=== PATIENT | female | born 1985 | race Caucasian/White ===

== ENCOUNTER → 2018-04-27 | Outpatient (CLI) | payer OTHER ==
--- NOTE | 2018-04-27 09:17 | US ---
EXAMINATION TYPE: Transabdominal DATE OF EXAM: 06/28/17 COMPARISON: NONE CLINICAL HISTORY: Z36 Confirm Dates Viability. Confirm Dates EXAM PERFORMED: Transabdominal (TA) EXAM MEASUREMENTS: GESTATIONAL AGE / DATING Physician Established: (9 weeks/0 days) EDC: 11/30/2018 Dates by LMP: (9 weeks/0 days) EDC: 11/30/2018 Dates by First Scan: No prior Dates by Current Scan for: (9 weeks/0 days) EDC: 11/30/2018 MATERNAL ANATOMY Uterus: 10.2 x 5.5 x 5.7 cm Right Ovary: 3.3 x 2.6 x 2.4 cm Left Ovary: 3.2 x 2.1 x 2.0 cm Post CDS / Adnexa: wnl Presence of free fluid: No Presence of corpus luteal cyst: Right Ovary= 2.5 x 1.7 x 1.6 cm Presence of subchorionic bleed: No GESTATION / SURVEY CRL: 2.3 cm (9 weeks/0 days) MSD: wnl Heart Rate: 172 bpm Rhythm: Normal IUP: Viable IUP Single, viable IUP/ No abnormality seen at this time IMPRESSION: 1. Single intrauterine gestation estimated at 9 weeks 0 days gestation based on crown-rump length. Ca rdiac activity measures 172 bpm was observed during the study. 2. Right ovarian cyst.
== END ==
LOC: RADUSWWP 08:49
PROVIDERS: ATTEND Obstetrics & Gynecology
DX: O34.81 Maternal care for other abnormalities of pelvic organs, first trimester (principal); N83.201 Unspecified ovarian cyst, right side; Z3A.09 9 weeks gestation of pregnancy
CPT/HCPCS: 76801

== ENCOUNTER 2018-07-08 09:01 | Emergency (ER) | payer OTHER ==
--- NOTE | 2018-07-08 09:33 | ED ---
General Adult HPI - General Chief complaint: Shortness of Breath Stated complaint: Congestion/cold Time Seen by Provider: 07/08/18 09:05 Source: family, RN notes reviewed Mode of arrival: ambulatory Limitations: no limitations - History of Present Illness Initial comments: This is a 33-year-old female presents emergency department complaining that she has had upper respiratory congestion cough and some mild shortness of breath for 6 weeks. Patient states she hasn't had a fever but she is coughing quite a bit. Patient states she went to [facility] this morning and they sent her into the emergency department because her heart rate was so fast. Patient states she has not had any chest pain her noticed any palpitations but she continues to have a cough without much production and she continues to be mildly short of breath. Patient denies any fever chills. Patient denies any abdominal pain patient denies nausea vomiting diarrhea. Patient denies headache patient denies numbness weakness. Patient denies any calf pain or leg swelling. - Related Data Home Medications Medication Instructions Recorded Confirmed Pedi Multivit No.25/Folic Acid 300 mcg PO DAILY 07/08/18 07/08/18 [Flintstones Multivit Chew Tab] diphenhydrAMINE HCL [Benadryl] 25 mg PO Q8H 07/08/18 07/08/18 Allergies Allergy/AdvReac Type Severity Reaction Status Date / Time No Known Allergies Allergy Verified 07/08/18 09:13 Review of Systems ROS Statement: Those systems with pertinent positive or pertinent negative responses have been documented in the HPI. ROS Other: All systems not noted in ROS Statement are negative. Past Medical History Additional Past Medical History / Comment(s): Migraines x 6 months History of Any Multi-Drug Resistant Organisms: None Reported Past Surgical History: Adenoidectomy, Cholecystectomy, Tonsillectomy Additional Past Surgical History / Comment(s): tubes in ears Past Psychological History: No Psychological Hx Reported Smoking Status: Never smoker General Exam - General Exam Comments Initial Comments: GENERAL: Patient is well-developed and well-nourished. Patient is nontoxic and well- hydrated and is in mild distress. ENT: Neck is soft and supple. No significant lymphadenopathy is noted. Oropharynx is clear. Moist mucous membranes. Neck has full range of motion without eliciting any pain. EYES: The sclera were anicteric and conjunctiva were pink and moist. Extraocular movements were intact and pupils were equal round and reactive to light. Eyelids were unremarkable. PULMONARY: Unlabored respirations. Good breath sounds bilaterally. No audible rales rhonchi or wheezing was noted. CARDIOVASCULAR: Patient's heart rates about 110 beats a minute ABDOMEN: Soft and nontender with normal bowel sounds. SKIN: Skin is clear with no lesions or rashes and otherwise unremarkable. NEUROLOGIC: Patient is alert and oriented x3. Cranial nerves II through XII are grossly intact. Motor and sensory are also intact. Normal speech, volume and content. Symmetrical smile. MUSCULOSKELETAL: Normal extremities with adequate strength and full range of motion. No lower extremity swelling or edema. No calf tenderness. LYMPHATICS: No significant lymphadenopathy is noted PSYCHIATRIC: Normal psychiatric evaluation. Normal interpersonal interactions appears functionally intact in deals appropriately with others. No signs of depression. No signs of anxiety. Limitations: no limitations Course Vital Signs 07/08/18 07/08/18 09:03 09:44 Temperature 98.1 F 98.9 F Pulse Rate 121 H 106 H Respiratory 22 24 Rate Blood Pressure 143/95 128/83 O2 Sat by Pulse 94 L 97 Oximetry Medical Decision Making - Medical Decision Making After initially interviewed the patient I went back in to talk to her again she indicated to me that she was 19 weeks . EKG shows sinus tachycardia at 111 bpm MD interval 252 QRS is 72 QT interval 3:30 QTC is 459. Patient's EKG shows no ST segment elevation or depression or T wave abnormalities are noted. Chest x-ray shows no acute abnormality. Patient will not get Tamiflu because it's been more than 3 days and she also is . - Lab Data Result diagrams: 07/08/18 09:35 07/08/18 09:35 Lab Results 07/08/18 07/08/18 07/08/18 Range/Units 09:35 09:35 09:35 WBC 10.1 (3.8-10.6) k/uL RBC 4.48 (3.80-5.40) m/uL Hgb 12.8 (11.4-16.0) gm/dL Hct 39.3 (34.0-46.0) % MCV 87.8 (80.0-100.0) fL MCH 28.7 (25.0-35.0) pg MCHC 32.7 (31.0-37.0) g/dL RDW 13.0 (11.5-15.5) % Plt Count 155 (150-450) k/uL Neutrophils % 82 % Lymphocytes % 8 % Monocytes % 6 % Eosinophils % 2 % Basophils % 1 % Neutrophils # 8.3 H (1.3-7.7) k/uL Lymphocytes # 0.8 L (1.0-4.8) k/uL Monocytes # 0.6 (0-1.0) k/uL Eosinophils # 0.2 (0-0.7) k/uL Basophils # 0.1 (0-0.2) k/uL PT 9.4 (9.0-12.0) sec INR 0.9 (<1.2) APTT 22.6 (22.0-30.0) sec D-Dimer 0.32 (<0.60) mg/L FEU Sodium 136 L (137-145) mmol/L Potassium 3.8 (3.5-5.1) mmol/L Chloride 106 (98-107) mmol/L Carbon Dioxide 20 L (22-30) mmol/L Anion Gap 10 mmol/L BUN 5 L (7-17) mg/dL Creatinine 0.44 L (0.52-1.04) mg/dL Est GFR (CKD-EPI)AfAm >90 (>60 ml/min/1.73 sqM) Est GFR (CKD-EPI)NonAf >90 (>60 ml/min/1.73 sqM) Glucose 95 (74-99) mg/dL Calcium 9.1 (8.4-10.2) mg/dL Magnesium 1.8 (1.6-2.3) mg/dL Total Bilirubin 0.4 (0.2-1.3) mg/dL AST 16 (14-36) U/L ALT 28 (9-52) U/L Alkaline Phosphatase 52 (38-126) U/L Troponin I (0.000-0.034) ng/mL Total Protein 6.3 (6.3-8.2) g/dL Albumin 3.5 (3.5-5.0) g/dL Influenza Type A RNA (Not Detectd) Influenza Type B (PCR) (Not Detectd) 07/08/18 07/08/18 Range/Units 09:35 10:00 WBC (3.8-10.6) k/uL RBC (3.80-5.40) m/uL Hgb (11.4-16.0) gm/dL Hct (34.0-46.0) % MCV (80.0-100.0) fL MCH (25.0-35.0) pg MCHC (31.0-37.0) g/dL RDW (11.5-15.5) % Plt Count (150-450) k/uL Neutrophils % % Lymphocytes % % Monocytes % % Eosinophils % % Basophils % % Neutrophils # (1.3-7.7) k/uL Lymphocytes # (1.0-4.8) k/uL Monocytes # (0-1.0) k/uL Eosinophils # (0-0.7) k/uL Basophils # (0-0.2) k/uL PT (9.0-12.0) sec INR (<1.2) APTT (22.0-30.0) sec D-Dimer (<0.60) mg/L FEU Sodium (137-145) mmol/L Potassium (3.5-5.1) mmol/L Chloride (98-107) mmol/L Carbon Dioxide (22-30) mmol/L Anion Gap mmol/L BUN (7-17) mg/dL Creatinine (0.52-1.04) mg/dL Est GFR (CKD-EPI)AfAm (>60 ml/min/1.73 sqM) Est GFR (CKD-EPI)NonAf (>60 ml/min/1.73 sqM) Glucose (74-99) mg/dL Calcium (8.4-10.2) mg/dL Magnesium (1.6-2.3) mg/dL Total Bilirubin (0.2-1.3) mg/dL AST (14-36) U/L ALT (9-52) U/L Alkaline Phosphatase (38-126) U/L Troponin I <0.012 (0.000-0.034) ng/mL Total Protein (6.3-8.2) g/dL Albumin (3.5-5.0) g/dL Influenza Type A RNA Detected H (Not Detectd) Influenza Type B (PCR) Not Detected (Not Detectd) Disposition Clinical Impression: Influenza A Disposition: HOME SELF-CARE Instructions (If sedation given, give patient instructions): Influenza (ED) Is patient prescribed a controlled substance at d/c from ED?: No Referrals: Annalise Francisco MD [Primary Care Provider] - 1-2 days Time of Disposition: 11:39
[2018-07-08 10:01] LABS: Basophils # (A) 0.1 k/uL (0-0.2); Basophils % (A) 1 %; Eosinophils # (A) 0.2 k/uL (0-0.7); Eosinophils % (A) 2 %; HCT 39.3 % (34.0-46.0); HGB 12.8 gm/dL (11.4-16.0); Lymphocytes # (A) 0.8 k/uL (1.0-4.8); Lymphocytes % (A) 8 %; MCH 28.7 pg (25.0-35.0); MCHC 32.7 g/dL (31.0-37.0); MCV 87.8 fL (80.0-100.0); Mean Platelet Volume 9.1; Monocytes # (A) 0.6 k/uL (0-1.0); Monocytes % (A) 6 %; Neutrophils # (A) 8.3 k/uL (1.3-7.7); Neutrophils % (A) 82 %; Platelet Count 155 k/uL (150-450); RBC 4.48 m/uL (3.80-5.40); WBC 10.1 k/uL (3.8-10.6)
[2018-07-08 10:11] LABS: ALT 28 U/L (9-52); AST 16 U/L (14-36); Albumin 3.5 g/dL (3.5-5.0); Alkaline Phosphatase 52 U/L (38-126); Anion Gap 10 mmol/L; Blood Urea Nitrogen 5 mg/dL (7-17); Calcium 9.1 mg/dL (8.4-10.2); Carbon Dioxide 20 mmol/L (22-30); Chloride 106 mmol/L (98-107); Glucose 95 mg/dL (74-99); Magnesium 1.8 mg/dL (1.6-2.3); Potassium 3.8 mmol/L (3.5-5.1); Sodium 136 mmol/L (137-145); Total Bilirubin 0.4 mg/dL (0.2-1.3); Total Protein 6.3 g/dL (6.3-8.2)
[2018-07-08 10:27] LABS: D-Dimer 0.32 mg/L FEU (<0.60); INR 0.9 (<1.2); Partial Thromboplastin Time 22.6 sec (22.0-30.0); Prothrombin Time 9.4 sec (9.0-12.0)
--- NOTE | 2018-07-08 11:07 | XR ---
EXAMINATION TYPE: XR chest 2V DATE OF EXAM ORDERED: 07/08/2018 HISTORY: difficulty breathing. REFERENCE: None. FINDINGS: The lungs are clear. Pleural spaces are clear. Heart size is normal. IMPRESSION: NORMAL CHEST.
[2018-07-08 11:58] VITALS: BP 137/78; PULSE 100; RESP 18; TEMP 98.2
== END 2018-07-08 11:57 | disposition home or self-care (01) ==
LOC: EC 09:01
DX: J10.1 Influenza due to other identified influenza virus with other respiratory manifestations (principal); O99.512 Diseases of the respiratory system complicating pregnancy, second trimester; O99.89 Other specified diseases and conditions complicating pregnancy, childbirth and the puerperium; R00.0 Tachycardia, unspecified; Z79.899 Other long term (current) drug therapy; Z90.89 Acquired absence of other organs; Z3A.19 19 weeks gestation of pregnancy
CPT/HCPCS: 36415; 71046; 80053; 83735; 84484; 85025; 85379; 85610; 85730; 87040; 87502; 93005; 99285

== ENCOUNTER 2018-11-07 07:45 | Inpatient (IN) | payer OTHER ==
[2018-11-07 09:19] VITALS: BMI 38.3
[2018-11-07] MEDS ORDERED: CARBOPROST TROMETHAMINE 250 MCG/ML 1 ML AMP IM PRN (09:19)
[2018-11-07] MEDS ORDERED: METHYLERGONOVINE 0.2 MG/ML 1 ML AMP IM PRN (09:19)
[2018-11-07] MEDS ORDERED: LIDOCAINE 0.5% (PF) 5 MG/ML (50 ML SDV) SQ PRN (09:19)
[2018-11-07] MEDS ORDERED: OXYTOCIN 10 UNIT/ML 1 ML VIAL IM PRN (09:19)
[2018-11-07] MEDS ORDERED: TERBUTALINE 1 MG/ML VIAL SQ PRN (09:19)
[2018-11-07 09:48] LABS: Basophils # (A) 0.1 k/uL (0-0.2); Basophils % (A) 0 %; Eosinophils # (A) 0.1 k/uL (0-0.7); Eosinophils % (A) 1 %; HCT 40.6 % (34.0-46.0); HGB 13.4 gm/dL (11.4-16.0); Lymphocytes # (A) 1.4 k/uL (1.0-4.8); Lymphocytes % (A) 10 %; MCH 29.3 pg (25.0-35.0); MCHC 32.9 g/dL (31.0-37.0); MCV 89.1 fL (80.0-100.0); Mean Platelet Volume 10.1; Monocytes # (A) 0.6 k/uL (0-1.0); Monocytes % (A) 5 %; Neutrophils # (A) 11.4 k/uL (1.3-7.7); Neutrophils % (A) 83 %; Platelet Count 193 k/uL (150-450); RBC 4.56 m/uL (3.80-5.40); RDW 13.7 % (11.5-15.5); WBC 13.8 k/uL (3.8-10.6)
[2018-11-07] MEDS: LACTATED RINGERS 1,000 ML IV SCH (09:53)
[2018-11-07] MEDS: OXYTOCIN 30 UNITS/500 ML NS 30 UNIT in SALINE 1 500ML.BAG IV SCH (09:54)
[2018-11-07 09:55] LABS: ALT 32 U/L (9-52); AST 27 U/L (14-36)
[2018-11-07] MEDS ORDERED: BUTORPHANOL 1 MG/ML 1 ML VIAL IV PRN (16:52)
[2018-11-07] MEDS ORDERED: BENZOCAINE/MENTHOL SPRAY 1 GM/SPRAY AEROSOL TOPICAL PRN (19:19)
[2018-11-07] MEDS ORDERED: WITCH HAZEL 1 EACH MED..PAD TOPICAL PRN (19:19)
[2018-11-07] MEDS ORDERED: ACETAMINOPHEN TAB 325 MG TAB PO PRN (19:19)
[2018-11-07] MEDS ORDERED: IBUPROFEN 600 MG TAB PO PRN (19:19)
[2018-11-07] MEDS ORDERED: ZOLPIDEM 5 MG TAB PO PRN (19:19)
[2018-11-07] MEDS ORDERED: LANOLIN CREAM 5 GM TUBE TOPICAL PRN (19:19)
[2018-11-07] MEDS ORDERED: SIMETHICONE 80 MG CHEWABLE PO PRN (19:19)
[2018-11-07] MEDS ORDERED: diphenhydrAMINE 50 MG/ML 1 ML VIAL IVP PRN ×2 (19:19)
[2018-11-07] MEDS ORDERED: diphenhydrAMINE 25 MG CAP PO PRN (19:19)
[2018-11-07] MEDS ORDERED: HYDROCORTISONE 2.5% RECTAL CREAM 30 GM TUBE RECTAL PRN (19:19)
[2018-11-07] MEDS ORDERED: HYDROcodone/APAP 5-325MG 1 EACH TAB PO PRN (19:19)
[2018-11-07] MEDS ORDERED: diphenhydrAMINE 50 MG CAP PO PRN (19:19)
--- NOTE | 2018-11-07 19:27 | P.HPOB ---
History of Present Illness H&P Date: 11/07/18 Chief Complaint: Intrauterine at 36 weeks: Spontaneous rupture irene sanchez Patient is a 33-year-old at 36 weeks gestation who arrives following spontaneous rupture membranes. She is having some irregular contractions and if she is not going to labor on her own and will start Pitocin for augmentation. Her Precis course itself was relatively uncomplicated, she did see maternal medicine for history of migraines and was started on a baby aspirin for same to reduce the risk of preeclampsia. Her blood pressures however were basically all normal throughout the . She did have one significant elevated blood pressure when she was at maternal- medicine but they cleared her for preeclampsia at that time at 36 weeks. Today he relates that she is feeling well and that this morning her water spontaneously ruptured with only rare contraction. I did speak with her neurologist this morning and she informed me that there was no concerns from her standpoint for any medications or for her pushing she her intracranial hypertension has been resolved and the last check she had were all normal. She does not have any other congenital brain dysfunction although she does have a aneurysm minutes been present for quite a while. On physical exam vital signs are stable and afebrile. Heart regular, lungs clear, extremities without pain. Abdomen soft gravid uterus is noted. Category 1 tracing is noted. She is dilated to 3 Cm 80% effaced -1 station cervix is posterior however. Initial blood pressure she did have a couple that were mildly elevated and therefore is ast/alt were drawn but both were normal. Platelets were also normal. A 10 reflexes were normal.Other signs or symptoms of preeclampsia. Assessment intrauterine at 36 weeks 5 days gestation with likely gestational hypertension. Spontaneous rupture membranes. Plan expect spontaneous vaginal delivery. She plans to do IV pain medicine as needed. Potential for Pitocin augmentation of labor. Past Medical History Additional Past Medical History / Comment(s): Migraines x 6 months. history of intracranial hypertension for 8 months which required 2 cerbral spinal taps to reduce pressure. now resolved. History of Any Multi-Drug Resistant Organisms: None Reported Past Surgical History: Adenoidectomy, Cholecystectomy, Tonsillectomy Additional Past Surgical History / Comment(s): tubes in ears Additional Past Anesthesia/Blood Transfusion Reaction / Comment(s): prone to spirnal headaches Past Psychological History: No Psychological Hx Reported Smoking Status: Never smoker - Past Family History Father History Unknown: Yes Family Medical History: Diabetes Mellitus, Hypertension Medications and Allergies Home Medications Medication Instructions Recorded Confirmed Type Pedi Multivit No.25/Folic Acid 300 mcg PO DAILY 07/08/18 11/07/18 History [Flintstones Multivit Chew Tab] Aspirin [[place] Aspirin EC] 81 mg PO DAILY 11/07/18 11/07/18 History Cetirizine HCl [Zyrtec] 10 mg PO DAILY 11/07/18 11/07/18 History Allergies Allergy/AdvReac Type Severity Reaction Status Date / Time No Known Allergies Allergy Verified 11/07/18 07:48 Exam Osteopathic Statement: *. No significant issues noted on an osteopathic structural exam other than those noted in the History and Physical/Consult. Vital Signs Temp Pulse Resp BP 11/07/18 09:06 97 20 137/88 11/07/18 08:39 98.5 F 110 H 20 147/90 Intake and Output 11/07/18 11/07/18 11/07/18 06:59 14:59 22:59 Intake Total 1.6 Balance 1.6 Intake: Intake, IV Titration 1.6 Amount Oxytocin 30 Units/500 ml 1.6 Ns 30 unit In Saline 1 500ml.bag @ 1 MILLIUNIT/ MIN 1 mls/hr IV .Q24H EDWARD Rx#:[id number] Other: Weight 128.367 kg Results Result Diagrams: 11/07/18 09:00 Abnormal Lab Results - Last 24 Hours (Table) 11/07/18 Range/Units 09:00 WBC 13.8 H (3.8-10.6) k/uL Neutrophils # 11.4 H (1.3-7.7) k/uL
[2018-11-07] MEDS ORDERED: OXYTOCIN 20 UNITS/1000 ML NS 1,000 ML IV SCH (19:30)
--- NOTE | 2018-11-07 19:32 | P.PROBDLV ---
Vaginal Delivery Note - . Vaginal Delivery Note: Patient breast complete and pushed with spontaneous vaginal delivery of a viable female over a second degree perineal laceration. Following delivery of the head anterior posterior shoulders were easily delivered with gentle downward upper traction with the baby in left occiput anterior position. Once baby was fully delivered mouth nares were bulb suctioned and spontaneous cry was noted. She was then placed on mother's abdomen where the umbilical cord was allowed to pulsate for 30 seconds prior to clamping cutting. Once this was accomplished placenta was then delivered intact with nursery personnel assuming care of the baby. Second perineal laceration was then noted. She was having some bleeding that was a little more than I would have light, therefore aggressive massage for uterus was done while we're repairing the laceration following 1% Xylocaine for analgesia and a 3-0 Vicryl suture. Just as the laceration was being completed the bleeding did get under control and was significant improvement. Should she have any significant problems with bleeding site Hemabate is ordered with Imodium or Lomotil for the side effects usually found with Hemabate. She cannot have Mandeep and as she is having elevated blood pressures. At this time however both mother and baby are stable her bleeding seems to be much better and her uterus is now firm. scores were 9 and 9 at one and 5 minutes respectively and the weight was 6 lbs. 6 oz. ebl 600 cc ( hemorrhage) will order cbc for a.m.
[2018-11-08] MEDS: SENNOSIDES-DOCUSATE SODIUM 1 EACH TAB PO SCH ×3 (07:40→19:53)
[2018-11-08 08:31] LABS: Basophils # (A) 0.1 k/uL (0-0.2); Basophils % (A) 0 %; Eosinophils # (A) 0.1 k/uL (0-0.7); Eosinophils % (A) 0 %; HCT 33.9 % (34.0-46.0); HGB 11.3 gm/dL (11.4-16.0); Lymphocytes # (A) 1.8 k/uL (1.0-4.8); Lymphocytes % (A) 12 %; MCH 29.9 pg (25.0-35.0); MCHC 33.3 g/dL (31.0-37.0); MCV 89.9 fL (80.0-100.0); Mean Platelet Volume 10.7; Monocytes # (A) 0.7 k/uL (0-1.0); Monocytes % (A) 4 %; Neutrophils # (A) 12.5 k/uL (1.3-7.7); Neutrophils % (A) 82 %; Platelet Count 187 k/uL (150-450); RBC 3.77 m/uL (3.80-5.40); RDW 15.4 % (11.5-15.5); WBC 15.3 k/uL (3.8-10.6)
--- NOTE | 2018-11-08 09:46 | P.DS ---
Providers Date of admission: 11/07/18 08:26 Expected date of discharge: 11/08/18 Attending physician: Westley Gagnon Primary care physician: Stated None Hospital Course: Patient is doing very well day 1. She's ablating, voiding and tolerating her diet. Her lochia is reported be light after having heavy bleeding last night. Vital signs are stable and afebrile. Heart regular, lungs clear, extremities without pain. She is requesting discharge home today. Assuming baby is able to home see no reason we cannot discharge her therefore discharge instructions were thoroughly reviewed and all questions were answered for her prior to discharge. She has no questions this time and requires no pain medicines to home with. Assessment day 1. Plan discharged home follow up with me in 6 weeks. Patient Condition at Discharge: Good Plan - Discharge Summary New Discharge Prescriptions: No Action Pedi Multivit No.25/Folic Acid [[place] Multivit Chew Tab] 300 mcg PO DAILY Cetirizine HCl [Zyrtec] 10 mg PO DAILY Aspirin [[place] Aspirin EC] 81 mg PO DAILY Discharge Medication List Pedi Multivit No.25/Folic Acid [[place] Multivit Chew Tab] 300 mcg PO DAILY 07/08/18 [History] Aspirin [[place] Aspirin EC] 81 mg PO DAILY 11/07/18 [History] Cetirizine HCl [Zyrtec] 10 mg PO DAILY 11/07/18 [History] Follow up Appointment(s)/Referral(s): Westley Gagnon DO [Doctor of Osteopathic Medicine] - 6 Weeks Activity/Diet/Wound Care/Special Instructions: No heavy lifting, limit stairs and driving, pelvic rest. If any high temperatures, heavy bleeding, or severe pain call my office Discharge Disposition: HOME SELF-CARE
[2018-11-08] MEDS: LACTATED RINGERS 1,000 ML IV SCH ×2 (22:15→22:17)
[2018-11-08] MEDS: OXYTOCIN 30 UNITS/500 ML NS 30 UNIT in SALINE 1 500ML.BAG IV SCH (22:16)
[2018-11-09 01:08] VITALS: RESP 18; TEMP 97.7
[2018-11-09] MEDS: SENNOSIDES-DOCUSATE SODIUM 1 EACH TAB PO SCH (07:39)
[2018-11-09 08:07] VITALS: BP 138/86; PULSE 110
--- NOTE | 2018-11-09 08:44 | P.DS ---
Providers Date of admission: 11/07/18 08:26 Expected date of discharge: 11/09/18 Attending physician: Westley Gagnon Primary care physician: Stated None Hospital Course: Patrizia and is doing very well. She is ambulating, voiding tolerating her diet. There are no changes from yesterday's dictated discharge summary and she is stable for discharge this time. She was kept due to the baby needing the reevaluated today and baby appears stable for discharge as well. Patient Condition at Discharge: Good Plan - Discharge Summary New Discharge Prescriptions: No Action Pedi Multivit No.25/Folic Acid [[place] Multivit Chew Tab] 300 mcg PO DAILY Cetirizine HCl [Zyrtec] 10 mg PO DAILY Aspirin [[place] Aspirin EC] 81 mg PO DAILY Discharge Medication List Pedi Multivit No.25/Folic Acid [[place] Multivit Chew Tab] 300 mcg PO DAILY 07/08/18 [History] Aspirin [[place] Aspirin EC] 81 mg PO DAILY 11/07/18 [History] Cetirizine HCl [Zyrtec] 10 mg PO DAILY 11/07/18 [History] Follow up Appointment(s)/Referral(s): Westley Gagnon DO [Doctor of Osteopathic Medicine] - 6 Weeks Activity/Diet/Wound Care/Special Instructions: No heavy lifting, limit stairs and driving, pelvic rest. If any high temperatures, heavy bleeding, or severe pain call my office Discharge Disposition: HOME SELF-CARE
== END 2018-11-09 11:00 | disposition home or self-care (01) | DRG 807 ==
LOC: FBPOP 07:45 → 4FBP 08:26
PROVIDERS: ADMIT Obstetrics & Gynecology; ATTEND Obstetrics & Gynecology
PROC: 10E0XZZ Delivery of Products of Conception, External Approach (ICD-10-PCS; principal; 2018-11-07)
PROC: 0KQM0ZZ Repair Perineum Muscle, Open Approach (ICD-10-PCS; 2018-11-07)
DX: O13.4 Gestational [pregnancy-induced] hypertension without significant proteinuria, complicating childbirth (principal); Z37.0 Single live birth; O72.1 Other immediate postpartum hemorrhage; O70.1 Second degree perineal laceration during delivery; G43.909 Migraine, unspecified, not intractable, without status migrainosus; O75.89 Other specified complications of labor and delivery; Z3A.36 36 weeks gestation of pregnancy; Z79.82 Long term (current) use of aspirin; Z90.49 Acquired absence of other specified parts of digestive tract; Z82.49 Family history of ischemic heart disease and other diseases of the circulatory system; Z83.3 Family history of diabetes mellitus
CPT/HCPCS: 59025; 83615; 84112; 84450; 84460; 85025; 86850; 86900; 86901; 88307; 99213; 99215

== ENCOUNTER 2021-02-01 16:26 | Emergency (ER) | payer OTHER ==
[2021-02-01 16:30] VITALS: RESP 18; TEMP 98.2
[2021-02-01] MEDS ORDERED: ONDANSETRON 4 MG/2 ML VIAL IVP STA ×2 (16:43→17:57)
[2021-02-01] MEDS ORDERED: SODIUM CHLORIDE 0.9% 1,000 ML IV STA (16:43)
[2021-02-01 17:06] LABS: Basophils % (A) 0 %; Eosinophils # (A) 0.1 k/uL (0-0.7); Eosinophils % (A) 1 %; HCT 46.5 % (34.0-46.0); HGB 15.5 gm/dL (11.4-16.0); Lymphocytes # (A) 1.8 k/uL (1.0-4.8); Lymphocytes % (A) 17 %; MCH 28.6 pg (25.0-35.0); MCHC 33.4 g/dL (31.0-37.0); MCV 85.7 fL (80.0-100.0); Mean Platelet Volume 8.5; Monocytes # (A) 0.4 k/uL (0-1.0); Monocytes % (A) 4 %; Neutrophils # (A) 8.1 k/uL (1.3-7.7); Neutrophils % (A) 76 %; Platelet Count 255 k/uL (150-450); RBC 5.42 m/uL (3.80-5.40); RDW 11.8 % (11.5-15.5); WBC 10.6 k/uL (3.8-10.6)
[2021-02-01 17:14] LABS: ALT 61 U/L (4-34); AST 35 U/L (14-36); African American GFR (CKD) >90 (>60 ml/min/1.73 sqM); Albumin 3.9 g/dL (3.5-5.0); Alkaline Phosphatase 67 U/L (38-126); Amylase 58 U/L (30-110); Anion Gap 12 mmol/L; Blood Urea Nitrogen 8 mg/dL (7-17); Calcium 9.4 mg/dL (8.4-10.2); Carbon Dioxide 19 mmol/L (22-30); Chloride 105 mmol/L (98-107); Glucose 108 mg/dL (74-99); Lipase 152 U/L (23-300); Non-African American GFR(CKD) >90 (>60 ml/min/1.73 sqM); Potassium 3.8 mmol/L (3.5-5.1); Sodium 136 mmol/L (137-145); Total Bilirubin 0.7 mg/dL (0.2-1.3)
[2021-02-01] MEDS ORDERED: ONDANSETRON 4 MG ODT STARTER PACK 2 TAB BTL PO STA (18:21)
--- NOTE | 2021-02-01 18:23 | ED ---
Nausea/Vomiting/Diarrhea HPI - General Chief complaint: Nausea/Vomiting/Diarrhea Stated complaint: Vomiting Time Seen by Provider: 02/01/21 16:39 Source: patient, RN notes reviewed Mode of arrival: ambulatory Limitations: no limitations - History of Present Illness Initial comments: Patient is a 35-year-old female that is approximately 11 weeks . She notes that she is complaining and nauseous vomiting and dehydration. She notes she was seen at [facility] last night and was sent home after IV fluids and Zofran. She was told her labs were normal. She denied any abdominal cramping spotting or issues. She notes she does follow-up with [facility] regular. She notes that she just wanted symptom medic control the nausea and vomiting. She denied chest pain shortness of breath headache diarrhea constipation fever fatigue chills. - Related Data Home Medications Medication Instructions Recorded Confirmed Pedi Multivit No.25/Folic Acid 300 mcg PO DAILY 07/08/18 11/07/18 [[place] Multivit Chew Tab] Aspirin [[place] Aspirin EC] 81 mg PO DAILY 11/07/18 11/07/18 Cetirizine HCl [Zyrtec] 10 mg PO DAILY 11/07/18 11/07/18 Allergies Allergy/AdvReac Type Severity Reaction Status Date / Time No Known Allergies Allergy Verified 02/01/21 16:30 Review of Systems ROS Statement: Those systems with pertinent positive or pertinent negative responses have been documented in the HPI. ROS Other: All systems not noted in ROS Statement are negative. Past Medical History Additional Past Medical History / Comment(s): Migraines. history of intr acranial hypertension for 8 months which required 2 cerbral spinal taps to reduce pressure. now resolved. History of Any Multi-Drug Resistant Organisms: None Reported Past Surgical History: Adenoidectomy, Cholecystectomy, Orthopedic Surgery, Tonsillectomy Additional Past Surgical History / Comment(s): tubes in ears Additional Past Anesthesia/Blood Transfusion Reaction / Comment(s): prone to spirnal headaches Past Psychological History: No Psychological Hx Reported Smoking Status: Never smoker Past Alcohol Use History: None Reported Past Drug Use History: None Reported - Past Family History Father History Unknown: Yes Family Medical History: Diabetes Mellitus, Hypertension General Exam Limitations: no limitations General appearance: alert, in no apparent distress, obese Head exam: Present: atraumatic, normocephalic, normal inspection Eye exam: Present: normal appearance, PERRL, EOMI. Absent: scleral icterus, conjunctival injection, periorbital swelling ENT exam: Present: normal exam, mucous membranes moist Neck exam: Present: normal inspection Respiratory exam: Present: normal lung sounds bilaterally. Absent: respiratory distress, wheezes, rales, rhonchi, stridor Cardiovascular Exam: Present: regular rate, normal rhythm, normal heart sounds. Absent: systolic murmur, diastolic murmur, rubs, gallop, clicks GI/Abdominal exam: Present: soft, normal bowel sounds. Absent: distended, tenderness, guarding, rebound, rigid Extremities exam: Present: normal inspection, full ROM, normal capillary refill. Absent: tenderness, pedal edema, joint swelling, calf tenderness Neurological exam: Present: alert, oriented X3 Psychiatric exam: Present: normal affect, normal mood Skin exam: Present: warm, dry, intact, normal color. Absent: rash Course Vital Signs 02/01/21 16:27 Temperature 98.2 F Pulse Rate 107 H Respiratory 18 Rate Blood Pressure 141/93 O2 Sat by Pulse 98 Oximetry Medical Decision Making - Medical Decision Making 35-year-old female complaining of nausea vomiting for the past several days. 1 L normal saline, 4 mg Zofran, basic labs ordered. Labs unremarkable. Patient is feeling better after one round of Zofran and 1 L of fluids. Patient is agreeable with discharge home and a starter pack of Zofran. Was discussed with Dr. Kurtz, patient discharge home. - Lab Data Result diagrams: 02/01/21 16:58 02/01/21 16:58 Lab Results 02/01/21 02/01/21 Range/Units 16:58 16:58 WBC 10.6 (3.8-10.6) k/uL RBC 5.42 H (3.80-5.40) m/uL Hgb 15.5 (11.4-16.0) gm/dL Hct 46.5 H (34.0-46.0) % MCV 85.7 (80.0-100.0) fL MCH 28.6 (25.0-35.0) pg MCHC 33.4 (31.0-37.0) g/dL RDW 11.8 (11.5-15.5) % Plt Count 255 (150-450) k/uL MPV 8.5 Neutrophils % 76 % Lymphocytes % 17 % Monocytes % 4 % Eosinophils % 1 % Basophils % 0 % Neutrophils # 8.1 H (1.3-7.7) k/uL Lymphocytes # 1.8 (1.0-4.8) k/uL Monocytes # 0.4 (0-1.0) k/uL Eosinophils # 0.1 (0-0.7) k/uL Basophils # 0.0 (0-0.2) k/uL Sodium 136 L (137-145) mmol/L Potassium 3.8 (3.5-5.1) mmol/L Chloride 105 (98-107) mmol/L Carbon Dioxide 19 L (22-30) mmol/L Anion Gap 12 mmol/L BUN 8 (7-17) mg/dL Creatinine 0.55 (0.52-1.04) mg/dL Est GFR (CKD-EPI)AfAm >90 (>60 ml/min/1.73 sqM) Est GFR (CKD-EPI)NonAf >90 (>60 ml/min/1.73 sqM) Glucose 108 H (74-99) mg/dL Calcium 9.4 (8.4-10.2) mg/dL Total Bilirubin 0.7 (0.2-1.3) mg/dL AST 35 (14-36) U/L ALT 61 H (4-34) U/L Alkaline Phosphatase 67 (38-126) U/L Total Protein 7.0 (6.3-8.2) g/dL Albumin 3.9 (3.5-5.0) g/dL Amylase 58 (30-110) U/L Lipase 152 (23-300) U/L Disposition Clinical Impression: Dehydration, Nausea & vomiting Disposition: HOME SELF-CARE Condition: Stable Instructions (If sedation given, give patient instructions): Acute Nausea and Vomiting (ED) Additional Instructions: Please return to the Emergency Department if symptoms worsen or any other concerns. Follow-up with primary care 1-2 days. Follow-up with [facility] as needed. Take Zofran as prescribed. Increase fluids. Is patient prescribed a controlled substance at d/c from ED?: No Referrals: Annalise Francisco MD [Primary Care Provider] - 1-2 days Time of Disposition: 18:23
[2021-02-01 18:36] VITALS: BP 127/81; PULSE 85
== END 2021-02-01 18:45 | disposition home or self-care (01) ==
LOC: EC 16:26
DX: O21.9 Vomiting of pregnancy, unspecified (principal); O99.281 Endocrine, nutritional and metabolic diseases complicating pregnancy, first trimester; E86.0 Dehydration; O26.891 Other specified pregnancy related conditions, first trimester; R19.7 Diarrhea, unspecified; O99.351 Diseases of the nervous system complicating pregnancy, first trimester; G43.909 Migraine, unspecified, not intractable, without status migrainosus; Z90.49 Acquired absence of other specified parts of digestive tract; Z79.82 Long term (current) use of aspirin; Z3A.11 11 weeks gestation of pregnancy
CPT/HCPCS: 36415; 80053; 82150; 83690; 85025; 99284; 96374; 96376; J2405; S0119

== ENCOUNTER 2021-08-11 13:58 | Outpatient (CLI) | payer OTHER ==
[2021-08-11 15:10] LABS: Creatinine,Urine Random 231.7 mg/dL
[2021-08-11 15:13] LABS: Appearance,Urine Cloudy (Clear); Bacteria,Urine Rare /hpf; Bilirubin,Urine Negative (Negative); Blood,Urine Negative (Negative); Calcium Oxalate Crystals,Urine Many /hpf; Color,Urine Yellow; Glucose,Urine (UA) Negative (Negative); Ketones,Urine Negative (Negative); Leukocyte Esterase,Urine Large (Negative); Mucus,Urine Many /hpf; Nitrite,Urine Negative (Negative); Protein,Urine Trace (Negative); RBC,Urine 2 /hpf (0-5); Squamous Epithelial Cell,Urine 8 /hpf (0-4); Urobilinogen,Urine <2.0 mg/dL (<2.0); WBC,Urine 11 /hpf (0-5)
[2021-08-11 15:18] LABS: Basophils % (A) 0 %; Eosinophils # (A) 0.1 k/uL (0-0.7); Eosinophils % (A) 1 %; HCT 39.4 % (34.0-46.0); HGB 12.9 gm/dL (11.4-16.0); Lymphocytes # (A) 1.6 k/uL (1.0-4.8); Lymphocytes % (A) 16 %; MCH 29.5 pg (25.0-35.0); MCHC 32.7 g/dL (31.0-37.0); MCV 90.3 fL (80.0-100.0); Mean Platelet Volume 11.8; Monocytes # (A) 0.6 k/uL (0-1.0); Monocytes % (A) 6 %; Neutrophils # (A) 7.7 k/uL (1.3-7.7); Neutrophils % (A) 76 %; Platelet Count 155 k/uL (150-450); RBC 4.36 m/uL (3.80-5.40); RDW 13.3 % (11.5-15.5); WBC 10.2 k/uL (3.8-10.6)
[2021-08-11 15:28] LABS: ALT 16 U/L (4-34); AST 21 U/L (14-36); African American GFR (CKD) >90 (>60 ml/min/1.73 sqM); Blood Urea Nitrogen 11 mg/dL (7-17); LDH 338 U/L (313-618); Non-African American GFR(CKD) >90 (>60 ml/min/1.73 sqM); Uric Acid 4.1 mg/dL (3.7-7.4)
[2021-08-11 15:36] LABS: INR 0.9 (<1.2); Partial Thromboplastin Time 22.7 sec (22.0-30.0); Prothrombin Time 9.6 sec (9.0-12.0)
[2021-08-11 15:46] VITALS: BP 183/93; PULSE 89; RESP 17; TEMP 96.7
== END 2021-08-11 15:30 | disposition home or self-care (01) ==
LOC: FBPOP 13:58
PROVIDERS: ATTEND Obstetrics & Gynecology
DX: O13.9 Gestational [pregnancy-induced] hypertension without significant proteinuria, unspecified trimester (principal); Z3A.00 Weeks of gestation of pregnancy not specified
CPT/HCPCS: 36415; 59025; 81001; 82565; 82570; 83615; 84156; 84450; 84460; 84520; 84550; 85025; 85384; 85610; 85730

== ENCOUNTER 2021-08-12 06:25 | Inpatient (IN) | payer OTHER ==
[2021-08-12] MEDS ORDERED: CARBOPROST TROMETHAMINE 250 MCG/ML 1 ML AMP IM PRN (06:43)
[2021-08-12] MEDS ORDERED: TERBUTALINE 1 MG/ML VIAL SQ PRN (06:43)
[2021-08-12] MEDS ORDERED: OXYTOCIN 10 UNIT/ML 1 ML VIAL IM PRN (06:43)
[2021-08-12] MEDS ORDERED: LIDOCAINE 1% (PF) 10 MG/ML (30 ML SDV) SQ PRN (06:43)
[2021-08-12] MEDS ORDERED: METHYLERGONOVINE 0.2 MG/ML 1 ML AMP IM PRN (06:43)
[2021-08-12] MEDS ORDERED: OXYTOCIN 30 UNITS/500 ML NS 30 UNIT in SALINE 1 500ML.BAG IV SCH ×2 (06:45→14:15)
[2021-08-12] MEDS: LACTATED RINGERS 1,000 ML IV SCH ×2 (06:55→11:51)
[2021-08-12] MEDS ORDERED: LABETALOL 5 MG/ML VIAL MDV IVP STA ×2 (07:00→08:40)
[2021-08-12 07:02] LABS: Basophils # (A) 0.1 k/uL (0-0.2); Basophils % (A) 1 %; Eosinophils # (A) 0.1 k/uL (0-0.7); Eosinophils % (A) 1 %; HCT 42.7 % (34.0-46.0); HGB 13.7 gm/dL (11.4-16.0); Lymphocytes # (A) 1.8 k/uL (1.0-4.8); Lymphocytes % (A) 18 %; MCHC 32.1 g/dL (31.0-37.0); MCV 90.2 fL (80.0-100.0); Mean Platelet Volume 11.8; Monocytes # (A) 0.6 k/uL (0-1.0); Monocytes % (A) 6 %; Neutrophils # (A) 7.1 k/uL (1.3-7.7); Neutrophils % (A) 72 %; Platelet Count 146 k/uL (150-450); RBC 4.74 m/uL (3.80-5.40); RDW 13.2 % (11.5-15.5); WBC 9.8 k/uL (3.8-10.6)
[2021-08-12 09:04] LABS: Glucose,Whole Blood 93 mg/dL (75-99)
[2021-08-12] MEDS ORDERED: LABETALOL 200 MG TAB PO STA (09:19)
[2021-08-12] MEDS ORDERED: SIMETHICONE 80 MG CHEWABLE PO PRN (14:12)
[2021-08-12] MEDS ORDERED: diphenhydrAMINE 50 MG/ML 1 ML VIAL IVP PRN ×2 (14:12)
[2021-08-12] MEDS ORDERED: ACETAMINOPHEN TAB 325 MG TAB PO PRN (14:12)
[2021-08-12] MEDS ORDERED: HYDROCORTISONE 2.5% RECTAL CREAM 30 GM TUBE RECTAL PRN (14:12)
[2021-08-12] MEDS ORDERED: diphenhydrAMINE 25 MG CAP PO PRN (14:12)
[2021-08-12] MEDS ORDERED: diphenhydrAMINE 50 MG CAP PO PRN (14:12)
[2021-08-12] MEDS ORDERED: BENZOCAINE/MENTHOL SPRAY 1 GM/SPRAY AEROSOL TOPICAL PRN (14:12)
[2021-08-12] MEDS ORDERED: ZOLPIDEM 5 MG TAB PO PRN (14:12)
[2021-08-12] MEDS ORDERED: LANOLIN CREAM 5 GM TUBE TOPICAL PRN (14:12)
[2021-08-12] MEDS: IBUPROFEN 600 MG TAB PO PRN ×2 (15:11→22:00)
[2021-08-12] MEDS ORDERED: LABETALOL 100 MG TAB PO SCH ×2 (16:30→22:00)
--- NOTE | 2021-08-12 17:53 | P.HPOB ---
History of Present Illness H&P Date: 08/12/21 Chief Complaint: Gestational hypertension 36-year-old presents at 38 weeks and 5 days for induction of labor due to gestational hypertension uncontrolled on labetalol. Her cervix is 3 cm dilated, 80% effaced, and 0 station. She's not ernestina. heart tones 130 with moderate variability and reactive. Her blood pressure was quite high when she got here to follow little bit of multiple protocol to decrease it. Review of Systems All systems: negative Constitutional: Denies chills, Denies fever Eyes: denies blurred vision, denies pain Ears, nose, mouth and throat: Denies headache, Denies sore throat Cardiovascular: Denies chest pain, Denies shortness of breath Respiratory: Denies cough Gastrointestinal: Denies abdominal pain, Denies diarrhea, Denies nausea, Denies vomiting Genitourinary: Denies dysuria, Denies hematuria Musculoskeletal: Denies myalgias Integumentary: Denies pruritus, Denies rash Neurological: Denies numbness, Denies weakness Psychiatric: Denies anxiety, Denies depression Endocrine: Denies fatigue, Denies weight change Past Medical History Past Medical History: Neurologic Disorder, Thyroid Disorder Additional Past Medical History / Comment(s): Migraines. history of intracranial hypertension for 8 months which required 2 cerbral spinal taps to reduce pressure. now resolved. 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 Ob stetrics history: First was a vaginal delivery. This is her second and she's had care with Dr. Oropeza and then me throughout this . Blood type is B+, and was negative, rubella immune, hepatitis B-, GBS negative, RPR nonreactive. History of Any Multi-Drug Resistant Organisms: None Reported Past Surgical History: Adenoidectomy, Cholecystectomy, Orthopedic Surgery, Tonsillectomy Additional Past Surgical History / Comment(s): tubes in ears Additional Past Anesthesia/Blood Transfusion Reaction / Comment(s): prone to spirnal headaches Past Psychological History: No Psychological Hx Reported Smoking Status: Never smoker Past Alcohol Use History: None Reported Past Drug Use History: None Reported - Past Family History Father History Unknown: Yes Family Medical History: Diabetes Mellitus, Hypertension Medications and Allergies Home Medications Medication Instructions Recorded Confirmed Type Aspirin [Dent Aspirin EC] 81 mg PO DAILY 11/07/18 08/12/21 History Labetalol [Trandate] 100 mg PO BID 08/11/21 08/12/21 History Pnv No.95/Ferrous Fum/Folic AC 1 each PO DAILY 08/11/21 08/12/21 History [ Multivitamin Tablet] methIMAzole [Tapazole] 5 mg PO DAILY 08/11/21 08/12/21 History Magnesium 400 mg PO DAILY 08/12/21 08/12/21 History Allergies Allergy/AdvReac Type Severity Reaction Status Date / Time No Known Allergies Allergy Verified 08/11/21 14:18 Exam Osteopathic Statement: *. No significant issues noted on an osteopathic structural exam other than those noted in the History and Physical/Consult. Vital Signs Temp Pulse Resp BP Pulse Ox 08/12/21 15:39 97.3 F L 75 17 164/80 08/12/21 15:09 81 17 158/86 08/12/21 14:39 90 16 160/90 08/12/21 14:24 76 17 160/84 08/12/21 14:08 79 17 162/76 08/12/21 13:54 82 17 157/78 08/12/21 13:39 96.6 F L 84 17 169/82 08/12/21 06:40 96.2 F L 82 17 170/100 96 Intake and Output 08/12/21 08/12/21 08/12/21 06:59 14:59 22:59 Intake Total 449.672 5954 Output Total 200 Balance 696.086 2308 Intake: IV 1500 Intake, IV Titration 195.467 Amount Oxytocin 30 Units/500 ml 195.467 Ns 30 unit In Saline 1 500ml.bag @ Per Protocol IV .Q0M [facility] Rx#:[id number] Oral 400 Output: Output, Quantitative 200 Blood Loss Other: # Voids 3 Weight 129.727 kg Heart: Regular rate and rhythm Lungs: Clear to auscultation bilaterally Abdomen: Soft, nontender Extremities: Negative Homans sign Results Result Diagrams: 08/12/21 06:45 Abnormal Lab Results - Last 24 Hours (Table) 08/12/21 Range/Units 06:45 Plt Count 146 L (150-450) k/uL Assessment and Plan (1) Gestational hypertension Current Visit: Yes Status: Acute Code(s): O13.9 - GESTATIONAL HTN W/O SIGNIFICANT PROTEINURIA, UNSP TRIMESTER SNOMED Code(s): 97101399 (2) 38 weeks gestation of Current Visit: Yes Status: Acute Code(s): Z3A.38 - 38 WEEKS GESTATION OF SNOMED Code(s): 19239940 Plan: 1. Induction of labor with amniotomy and Pitocin 2. Anticipate normal vaginal delivery
--- NOTE | 2021-08-12 17:53 | P.PROBDLV ---
Vaginal Delivery Note - . Vaginal Delivery Note: 36-year-old presents at 38 weeks and 5 days for induction of labor due to gestational hypertension uncontrolled on labetalol. Her cervix is 3 cm dilated, 80% effaced, and 0 station. She's not ernestina. heart tones 130 with moderate variability and reactive. Her blood pressure was quite high when she got here to follow little bit of multiple protocol to decrease it. Pitocin was started and amniotomy performed at 7:04 AM clear fluid noted. She progressed to complete, I was called to the bedside but before it could get their the infant was delivered. When I came into the room the infant was in the warmer, the umbilical cord was clamped and still attach the placenta which remained and side of the patient. had delivered at 1325 with Apgars of 8, 9, and a weight of 7 pounds. Placenta delivered at 1329 intact with three-vessel cord. Vagina, cervix, perineum inspected. No lacerations noted. Estimated blood loss 200 mL. Mother and baby in stable condition.
[2021-08-12] MEDS: SENNOSIDES-DOCUSATE SODIUM 1 EACH TAB PO SCH (21:59)
[2021-08-12] MEDS: LABETALOL 200 MG TAB PO SCH (22:00)
[2021-08-13 07:29] LABS: Basophils % (A) 0 %; Eosinophils # (A) 0.1 k/uL (0-0.7); Eosinophils % (A) 1 %; HGB 12.1 gm/dL (11.4-16.0); Lymphocytes % (A) 18 %; MCH 29.8 pg (25.0-35.0); MCHC 32.7 g/dL (31.0-37.0); MCV 91.1 fL (80.0-100.0); Mean Platelet Volume 11.8; Monocytes # (A) 0.8 k/uL (0-1.0); Monocytes % (A) 7 %; Neutrophils # (A) 7.8 k/uL (1.3-7.7); Neutrophils % (A) 72 %; Platelet Count 142 k/uL (150-450); RBC 4.06 m/uL (3.80-5.40); RDW 13.5 % (11.5-15.5)
[2021-08-13] MEDS: LABETALOL 200 MG TAB PO SCH (08:23)
[2021-08-13] MEDS: SENNOSIDES-DOCUSATE SODIUM 1 EACH TAB PO SCH (08:23)
[2021-08-13 09:13] VITALS: RESP 20
--- NOTE | 2021-08-13 09:30 | P.DS ---
Providers Date of admission: 08/12/21 06:25 Expected date of discharge: 08/13/21 Attending physician: Barbie Licea Primary care physician: Stated None - Discharge Diagnosis(es) (1) Gestational hypertension Current Visit: Yes Status: Acute (2) 38 weeks gestation of Current Visit: Yes Status: Resolved (3) Normal vaginal delivery Current Visit: Yes Status: Acute Hospital Course: She presented for induction of labor due to gestational hypertension uncontrolled on labetalol. She underwent a normal vaginal delivery. course was complicated by increased blood pressures. Her labetalol was incre ased to 200 mg 3 times a day. Her blood pressures are 120-130/70 to 80s now. The patient feels well, denies nausea, vomiting, chest pain, shortness of breath or any calf pain. Patient will be discharged home day #1 in stable condition to follow-up with me in one week for a blood pressure check. Plan - Discharge Summary New Discharge Prescriptions: New Labetalol [Trandate] 200 mg PO TID 30 Days #90 tab Ibuprofen [Motrin] 600 mg PO Q6HR PRN #30 tab PRN Reason: Mild Pain (Scale 1 To 3) Discontinued Labetalol [Trandate] 100 mg PO BID No Action Aspirin [[place] Aspirin EC] 81 mg PO DAILY methIMAzole [Tapazole] 5 mg PO DAILY Pnv No.95/Ferrous Fum/Folic AC [ Multivitamin Tablet] 1 each PO DAILY Magnesium 400 mg PO DAILY Discharge Medication List Aspirin [[place] Aspirin EC] 81 mg PO DAILY 11/07/18 [History] Pnv No.95/Ferrous Fum/Folic AC [ Multivitamin Tablet] 1 each PO DAILY 08/11/21 [History] methIMAzole [Tapazole] 5 mg PO DAILY 08/11/21 [History] Magnesium 400 mg PO DAILY 08/12/21 [History] Ibuprofen [Motrin] 600 mg PO Q6HR PRN #30 tab 08/13/21 [Rx] Labetalol [Trandate] 200 mg PO TID 30 Days #90 tab 08/13/21 [Rx] Follow up Appointment(s)/Referral(s): Barbie Licea DO [Doctor of Osteopathic Medicine] - 1 Week Discharge Disposition: HOME SELF-CARE
[2021-08-13 11:51] VITALS: BP 117/68; PULSE 81; TEMP 98.5
== END 2021-08-13 14:15 | disposition home or self-care (01) | DRG 807 ==
LOC: 4FBP 06:25
PROVIDERS: ADMIT Obstetrics & Gynecology; ATTEND Obstetrics & Gynecology
PROC: 10E0XZZ Delivery of Products of Conception, External Approach (ICD-10-PCS; principal; 2021-08-12)
DX: O13.4 Gestational [pregnancy-induced] hypertension without significant proteinuria, complicating childbirth (principal); Z37.0 Single live birth; E03.9 Hypothyroidism, unspecified; O99.284 Endocrine, nutritional and metabolic diseases complicating childbirth; Z3A.38 38 weeks gestation of pregnancy; Z79.82 Long term (current) use of aspirin; Z79.899 Other long term (current) drug therapy; Z82.49 Family history of ischemic heart disease and other diseases of the circulatory system; Z83.3 Family history of diabetes mellitus
CPT/HCPCS: 85025; 86850; 86900; 86901

== ENCOUNTER 2022-03-04 08:58 | Day surgery (SDC) | payer OTHER ==
--- NOTE | 2022-03-03 18:08 | P.HPOB ---
History of Present Illness H&P Date: 03/03/22 Chief Complaint: Family planning 36-year-old presents for laparoscopic tubal ligation. Review of Systems All systems: negative Constitutional: Denies chills, Denies fever Eyes: denies blurred vision, denies pain Ears, nose, mouth and throat: Denies headache, Denies sore throat Cardiovascular: Denies chest pain, Denies shortness of breath Respiratory: Denies cough Gastrointestinal: Denies abdominal pain, Denies diarrhea, Denies nausea, Denies vomiting Genitourinary: Denies dysuria, Denies hematuria Musculoskeletal: Denies myalgias Integumentary: Denies pruritus, Denies rash Neurological: Denies numbness, Denies weakness Psychiatric: Denies anxiety, Denies depression Endocrine: Denies fatigue, Denies weight change Past Medical History Past Medical History: Neurologic Disorder, Thyroid Disorder Additional Past Medical History / Comment(s): Migraines. history of intracranial hypertension for 8 months which required 2 cerbral spinal taps to reduce pressure. now resolved. 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 Obstetrics history: First was a vaginal delivery. This is her second and she's had care with Dr. Oropeza and then me throughout this . Blood type is B+, and was negative, rubella immune, hepatitis B-, GBS negative, RPR nonreactive.liver enzymes slightly elevated being watched History of Any Multi-Drug Resistant Organisms: None Reported Past Surgical History: Adenoidectomy, Cholecystectomy, Orthopedic Surgery, Tonsillectomy Additional Past Surgical History / Comment(s): tubes in ears, acl and mcl reconstruction on the left Past Anesthesia/Blood Transfusion Reactions: No Reported Reaction Additional Past Anesthesia/Blood Transfusion Reaction / Comment(s): prone to spinal headaches. no blood tranfusions Smoking Status: Never smoker - Past Family History Father History Unknown: Yes Family Medical History: Diabetes Mellitus, Hypertension Additional Family Medical History / Comment(s): paternal grandmother clot after being hit by car. Medications and Allergies Home Medications Medication Instructions Recorded Confirmed Type Pnv No.95/Ferrous Fum/Folic AC 1 each PO DAILY 08/11/21 03/02/22 History [ Multivitamin Tablet] methIMAzole [Tapazole] 5 mg PO HS 08/11/21 03/02/22 History Magnesium 400 mg PO DAILY 08/12/21 03/02/22 History Allergies Allergy/AdvReac Type Severity Reaction Status Date / Time No Known Allergies Allergy Verified 03/02/22 13:49 Exam Osteopathic Statement: *. No significant issues noted on an osteopathic structural exam other than those noted in the History and Physical/Consult. Heart: Regular rate and rhythm Lungs: Clear to auscultation bilaterally Abdomen: Soft, nontender Extremities: Negative Homans sign Assessment and Plan (1) Family planning Status: Acute Code(s): Z30.09 - ENCOUNTER FOR OTH GENERAL CNSL AND ADVICE ON CONTRACEPTION SNOMED Code(s): 184313035 Plan: 1. Laparoscopic tubal ligation
[~2022-03-04 08:58] MED LIST: DEXAMETHASONE SOD PHOSPHATE 4 MG/ML 1 ML VIAL IV ONE; HYDROmorphone 0.5 MG/0.5 ML SYRINGE IVP PRN; LACTATED RINGERS 1,000 ML IV SCH; ONDANSETRON 4 MG/2 ML VIAL IVP ONE; Pre Op ABX Message 1 EACH MISC MISCELLANE ONE
[2022-03-04] MEDS ORDERED: LACTATED RINGERS 1,000 ML IV ONE (10:32)
[2022-03-04] MEDS ORDERED: fentaNYL (PF) 50 MCG/ML 2 ML AMP ONE (11:39)
[2022-03-04] MEDS ORDERED: NEOSTIGMINE 1 MG/ML 10 ML VIAL ONE (11:39)
[2022-03-04] MEDS ORDERED: MIDAZOLAM 2 MG/2 ML VIAL ONE (11:39)
[2022-03-04] MEDS ORDERED: KETOROLAC 15 MG/ML 1 ML VIAL ONE (11:39)
[2022-03-04] MEDS ORDERED: ROCURONIUM 10 MG/ML (5 ML VIAL) IV ONE (11:39)
[2022-03-04] MEDS ORDERED: PROPOFOL 10 MG/ML 20 ML VIAL IV ONE (11:39)
[2022-03-04] MEDS ORDERED: LIDOCAINE 2% INJ 20 MG/ML (2 ML VIAL) ONE (11:39)
[2022-03-04] MEDS ORDERED: SUCCINYLCHOLINE CHLORIDE 200 MG/10 ML VIAL IV ONE (11:39)
[2022-03-04] MEDS ORDERED: BUPIVACAINE (PF) 0.25% 30 ML VIAL SQ ONE ×2 (12:04→12:13)
--- NOTE | 2022-03-04 12:22 | P.OP ---
Date of Procedure: 03/04/22 Preoperative Diagnosis: 1. Family planning Postoperative Diagnosis: 1. Family planning Procedure(s) Performed: Laparoscopic tubal ligation Anesthesia: LUIS Surgeon: Barbie Licea Estimated Blood Loss (ml): 2 IV fluids (ml): 200 Urine output (ml): 40 Pathology: none sent Condition: stable Disposition: PACU Operative Findings: Normal uterus, tubes, ovaries Description of Procedure: Patient was taken to the operating room where general anesthesia was obtained without difficulty. She was prepped and draped in normal sterile fashion in the dorsal lithotomy position, legs placed in the Dionicio stirrups. Bladder drained of all urine. [place] speculum placed in the vagina and the anterior lip the cervix was grasped with single-tooth tenaculum. The uterus is sounded to 9 cm and the kroner manipulator was placed. Attention was then turned to the abdomen and gloves were changed. A 10 mm infraumbilical incision was made the scalpel and 10 mm optical trocar was placed under direct visualization. A 5 mm suprapubic Incision was made and a 5 mm optical trocar was placed under direct visualization. Survey of the pelvis revealed normal uterus tubes and ovaries. The left fallopian tube was grasped with a Kleppinger and fulgurated 2-3 cm on this side in the ampullar portion. The right fallopian tube was grasped with a Kleppinger and fulgurated 2-3 cm in the ampullar portion. All instruments were then removed from the abdomen and vagina. The 10 mm infraumbilical incision was closed with 0 Vicryl and the fascial layer and then 4-0 Monocryl in a subcuticular fashion. The 5 mm incision was closed with 4-0 Vicryl in a subcuticular fashion. Patient tolerated procedure well, sponge and instrument counts correct 2 and she was taken to recovery room in stable condition.
[2022-03-04 12:28] VITALS: TEMP 97.2
[2022-03-04 12:49] VITALS: RESP 16
[2022-03-04] MEDS ORDERED: ACETAMINOPHEN TAB 500 MG TAB PO ONE (13:30)
[2022-03-04] MEDS ORDERED: ACETAMINOPHEN TAB 500 MG TAB ONE (13:32)
[2022-03-04 14:04] VITALS: BP 116/56; PULSE 70
== END 2022-03-04 14:20 | disposition home or self-care (01) ==
LOC: OR 08:58
PROVIDERS: ATTEND Obstetrics & Gynecology
DX: Z30.9 Encounter for contraceptive management, unspecified (principal); E03.9 Hypothyroidism, unspecified; I10 Essential (primary) hypertension; Z83.3 Family history of diabetes mellitus; Z90.89 Acquired absence of other organs; Z90.49 Acquired absence of other specified parts of digestive tract; Z79.899 Other long term (current) drug therapy
CPT/HCPCS: 81025; 58670; J2250; J0330; J1100; J2710; J2405; J3010; J1885; J2704; J2001